=== PATIENT | female | born 1970 | race Caucasian/White ===

== ENCOUNTER 2021-07-30 18:35 | Inpatient (IN) | payer BC, SELFPAY ==
--- NOTE | 2021-07-30 21:00 | RAD REPORT ---
EXAM DESCRIPTION: RAD - Chest Single View - 07/30/2021 8:32 pm CLINICAL HISTORY: Cough Chest pain. COMPARISON: No comparisons FINDINGS: Portable technique limits examination quality. The lungs are grossly clear. The heart is normal in size. No displaced fractures.Right port catheter has tip in the SVC. IMPRESSION: No acute intrathoracic process suspected.
[2021-07-30 21:54] LABS: Urine Blood Trace-intact (Negative); Urine Glucose Negative (Negative); Urine Protein 1+ (Negative); Urine Specific Gravity 1.015 (1.005-1.030); Urine pH 5.5 (5.0-7.0)
[2021-07-30 22:11] LABS: Absolute Lymphocytes (CBC) 1.9 K/uL (0.7-4.9); Hematocrit 26.4 % (36.0-45.0); Lymphocytes % 20.3 % (15.3-44.8); MCV 97.1 fL (80-100); RBC Red Blood Cell Count 2.72 M/uL (3.86-4.86)
[2021-07-30] MEDS ORDERED: NA CHLORIDE 0.9% 500 ML ONE (22:19)
[2021-07-30] MEDS ORDERED: ACETAMINOPHEN 500 MG TAB ONE (22:19)
[2021-07-30] MEDS ORDERED: NA CHLORIDE 0.9% 2,000 ML ONE (22:20)
[2021-07-30] MEDS ORDERED: NA CHLORIDE 0.9% 100 ML ONE (22:20)
[2021-07-30] MEDS ORDERED: CEFEPIME 1 GM/VIAL ONE (22:20)
[2021-07-30 22:33] LABS: Urine Bacteria <20 /HPF (<20); Urine RBC <5 /HPF (NONE SEEN)
[2021-07-30 22:35] LABS: Protime INR 1.43
[2021-07-30 22:38] LABS: Bilirubin Total 0.3 mg/dL (0.2-1.0)
[2021-07-30 22:39] LABS: Urine Specific Gravity/Preg 1.015 (1.005-1.030)
[2021-07-30 22:39] LABS: Albumin 2.8 g/dL (3.4-5.0); Protein, Total 7.3 g/dL (6.4-8.2)
[2021-07-30 22:41] LABS: Potassium 2.9 mmol/L (3.5-5.1)
--- NOTE | 2021-07-30 22:51 | EDPHYS ---
Physician Documentation [facility] Name: Valentina Vickers Age: 51 yrs Sex: Female : 1970 Arrival Date: 07/30/2021 Time: 18:38 Bed 26 Private MD: ED Physician Sammy Martinez HPI: 07/30 20:10 This 51 yrs old Female presents to ER via Ambulatory with complaints of Patient cp finished last round of chemo 2 weeks ago, patient states she has a temperature of 102.5, nausea/vomiting, body aches.. 20:10 The patient reports fever, that was measured at 102.5 degrees Fahrenheit. Onset: The cp symptoms/episode began/occurred today. 20:10 Associated signs and symptoms: Pertinent positives: abdominal pain, chills, diarrhea, cp nausea, vomiting, Pertinent negatives: altered mental status. Severity of symptoms: in the emergency department the symptoms are unchanged despite home interventions. Patient reports receiving last dose of chemo 2 weeks ago for history of breast cancer. 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 - Social history:: Smoking status: Patient denies any tobacco usage or history of. ROS: 20:15 Constitutional: Positive for body aches, chills, Negative for fever. cp 20:15 Abdomen/GI: Positive for abdominal pain, nausea, vomiting, and diarrhea. cp 20:15 Cardiovascular: Negative for chest pain, edema, palpitations. cp 20:15 Eyes: Negative for injury, pain, redness, and discharge. cp 20:15 ENT: Negative for drainage from ear(s), ear pain, sore throat, difficulty swallowing, difficulty handling secretions. 20:15 Respiratory: Negative for cough, shortness of breath, wheezing. 20:15 : Negative for urinary symptoms. 20:15 Skin: Negative for cellulitis, rash. 20:15 Neuro: Negative for altered mental status, dizziness, headache, weakness. 20:15 All other systems are negative. Exam: 20:20 Constitutional: The patient appears in no acute distress, alert, awake, cp non-diaphoretic, non-toxic, well developed, well nourished. 20:20 Head/Face: Normocephalic, atraumatic. cp 20:20 Eyes: Periorbital structures: appear normal, Conjunctiva: normal, no exudate, no injection, Sclera: no appreciated abnormality, Lids and lashes: appear normal, bilaterally. 20:20 ENT: External ear(s): are unremarkable, Nose: is normal, Mouth: Lips: moist, Oral mucosa: pink and intact, moist, Posterior pharynx: Airway: no evidence of obstruction, patent, Tonsils: are normal in appearance, swelling, is not appreciated, erythema, is not appreciated, exudate, is not appreciated. 20:20 Neck: ROM/movement: is normal, is supple, without pain, no range of motions limitations, no meningismus. 20:20 Chest/axilla: Inspection: normal. 20:20 Cardiovascular: Rate: tachycardic, Rhythm: regular, Edema: is not appreciated, JVD: is not appreciated. 20:20 Respiratory: the patient does not display signs of respiratory distress, Respirations: normal, no use of accessory muscles, no retractions, labored breathing, is not present, Breath sounds: are clear throughout, no decreased breath sounds, no stridor, no wheezing. 20:20 Abdomen/GI: Inspection: abdomen appears normal, Bowel sounds: active, all quadrants, Palpation: soft, in all quadrants, mild abdominal tenderness, in the right upper quadrant, rebound tenderness, is not appreciated, involuntary guarding, is not appreciated. 20:20 Back: pain, is absent, ROM is normal. 20:20 Skin: cellulitis, is not appreciated, no rash present. 20:20 Neuro: Orientation: to person, place \\T\\ time. Mentation: is normal. 22:07 ECG was reviewed by the Attending Physician. cp Vital Signs: 19:57 BP 120 / 64; Pulse 127; Resp 18 S; Temp 98.7(TE); Pulse Ox 96% on R/A; Weight 88 kg bb (R); Height 5 ft. 4 in. (162.56 cm) (R); Pain 6/10; 19:57 Body Mass Index 33.30 (88.00 kg, 162.56 cm) bb MDM: 20:08 Patient medically screened. cp 21:00 Differential diagnosis: viral Infection, bacterial infection, URI, bronchitis, cp pneumonia UTI, gastroenteritis, meningitis. 23:00 Data reviewed: vital signs, nurses notes, lab test result(s), EKG, radiologic studies, cp plain films. 23:00 Post IV fluid administration reassessment for Sepsis: Client prescribed 30 mL/kg IVF. cp Heart: Regular rate/rhythm noted. Lungs: Noted to be clear bilaterally. Neuro: no change Cardio: Cardiovascular examination improved from previous exam. Heart rate and blood pressure have improved. Respiratory: no change. Counseling: I had a detailed discussion with the patient and/or guardian regarding: the historical points, exam findings, and any diagnostic results supporting the discharge/admit diagnosis, lab results, radiology results, the need for further work-up and treatment in the hospital. ED course: repeat lactate not ordered due to initial lactate wnl. 07/30 20:04 Order name: Blood Culture Adult (2) / 20:04 Order name: CBC with Diff; Complete Time: 23:39 07/30 22:29 Interpretation: Normal except: RBC 2.72; HGB 9.1; HCT 26.4; RDW 16.7; MN% 23.6; MNA 2.2. / 20:04 Order name: CMP; Complete Time: 22:47 / 22:45 Interpretation: NA 134; K 2.9; GLUC 115; BUN 4; AST 13; ALB 2.8; GLOB 4.5; A/G 0.6. / 20:04 Order name: Lactate; Complete Time: 22:45 / 22:48 Interpretation: LAC 1.6; Reviewed. / 20:04 Order name: Protime (+inr); Complete Time: 22:45 / 23:28 Interpretation: PT 15.9; Reviewed. / 20:04 Order name: Ptt, Activated; Complete Time: 22:45 / 20:04 Order name: Urine Culture / 20:04 Order name: Urine Microscopic Only; Complete Time: 22:45 / 22:50 Interpretation: UWBC TNTC; Reviewed. / 20:04 Order name: Influenza Screen (a \\T\\ B); Complete Time: 22:45 /13 20:04 Order name: Strep; Complete Time: 22:45 07/30 20:04 Order name: COVID-19 SARS RT PCR (Document "Date of Onset" if Symptomatic); Complete cp Time: 23:13 07/30 21:54 Order name: Urine Dipstick-Ancillary; Complete Time: 21:55 EDMS 07/30 22:03 Interpretation: Normal except: UKET 1+; UBLD Trace-intact; UPROT 1+; UESTR 1+. 07/30 22:00 Order name: Glucose, Ancillary Testing; Complete Time: 22:02 EDMS 07/30 22:00 Order name: Glucose, Ancillary Testing; Complete Time: 22:02 EDMS 07/30 20:04 Order name: Chest Single View XRAY; Complete Time: 21:29 07/30 21:30 Interpretation: Report reviewed. 07/30 20:04 Order name: Accucheck; Complete Time: 22:10 07/30 22:09 Order name: CT Abd/Pelvis - IV Contrast Only 07/30 22:22 Order name: Manual Differential; Complete Time: 23:28 EDGA 07/30 23:28 Interpretation: Normal except: BANDS [F] 10; MONO 21. 07/30 22:28 Order name: Urine --Ancillary (enter results); Complete Time: 22:45 07/30 22:49 Order name: Throat Culture EDGA 07/31 00:16 Order name: US Abdomen Limited: RUQ 07/31 06:00 Order name: CBC with Automated Diff EDGA 07/31 06:12 Order name: Basic Metabolic Panel EDGA 07/31 06:12 Order name: Phosphorus EDGA 07/31 06:12 Order name: Magnesium EDGA 07/30 20:04 Order name: Cardiac monitoring; Complete Time: 22:10 07/30 20:04 Order name: EKG - Nurse/Tech; Complete Time: 22:10 07/30 20:04 Order name: IV Saline Lock - Large Bore; Complete Time: 21:15 07/30 20:04 Order name: Labs collected and sent; Complete Time: 21:15 07/30 20:04 Order name: O2 Per Protocol; Complete Time: 22:10 07/30 20:04 Order name: O2 Sat Monitoring; Complete Time: 22:10 06/13 20:04 Order name: Urine Dipstick-Ancillary (obtain specimen); Complete Time: 22:10 cp 07/30 20:04 Order name: Urine Test (obtain specimen); Complete Time: 22:10 cp EC:07 Rate is 117 beats/min. Rhythm is regular. GA interval is normal. QRS interval is cp normal. QT interval is normal. T waves are Inverted in lead aVR. Interpreted by me. Reviewed by me. Administered Medications: : Drug: Acetaminophen 1000 mg Route: PO; ke1 22:28 Drug: NS 0.9% (30 ml/kg) 30 ml/kg Route: IV; Rate: bolus; Site: Port-a-cath; ke1 :28 Drug: Cefepime 1 grams Route: IVPB; Rate: 200 ml/hr; Infused Over: 30 mins; Site: [facility] Port-a-cath; 07/31 01:10 Not Given (allergic to vanc MD notified): vancoMYCIN 1 grams IVPB once over 2 hrs ke1 01:20 Drug: Potassium Chloride 20 mEq Route: IV; Rate: calculated rate; Site: Port-a-cath; [facility] Disposition Summary: 07/30/21 22:51 Hospitalization Ordered Hospitalization Status: Inpatient Admission cp Provider: Tomy Samuel cp Condition: Stable cp Problem: new cp Symptoms: have improved cp Bed/Room Type: Standard cp Location: Telemetry/MedSurg (Inpatient)(07/31/21 09:38) bd Room Assignment: 204(07/31/21 09:38) bd Diagnosis - UTI/ Urinary tract infection, site not specified cp - Bandemia cp - Hypokalemia cp Forms: - Medication Reconciliation Form cp - SBAR form cp Addendum: 08/03/2021 08:29 Co-signature as Attending Physician, Sammy Martinez MD I agree with the assessment and c chau plan of care. Signatures: Dispatcher [employer] EDMS Iman Leon Corey, MD MD cha Ballard, Brenda RN Sammy Sandoval PA PA cp Jasmina Clayton, Haven Raplh RN, RN RN ke1 Nancy Saul PA PA sb3 Corrections: (The following items were deleted from the chart) 07/30 22:50 22:48 Reviewed. cp cp 23:39 22:51 Telemetry/MedSurg (Inpatient) cp cg 23:39 22:51 cp cg 07/31 09:38 07/30 23:39 BR ER HOLD cg bd 07/31 09:38 07/30 23:39 ERHOLD- cg bd
--- NOTE | 2021-07-30 22:51 | ER ---
Nurse's Notes [facility] Name: Valentina Vickers Age: 51 yrs Sex: Female : 1970 Arrival Date: 07/30/2021 Time: 18:38 Bed 26 Private MD: Diagnosis: UTI/ Urinary tract infection, site not specified;Bandemia;Hypokalemia Presentation: 07/30 19:57 Chief complaint: Patient states: she started running fever today and she finished chemo bb a few weeks ago temp at home was 102.4, she also has burning with urination and thinks she may have a UTI. Coronavirus screen: fever. Ebola Screen: No symptoms or risks identified at this time. Initial Sepsis Screen: Does the patient meet any 2 criteria? Temp <36.0*C (96.8*F)) or > 38.3*C (100.9*F). HR > 90 bpm. Yes Does the patient have a suspected source of infection? Yes: Dysuria/Frequency/Urgency/UTI. Risk Assessment: Do you want to hurt yourself or someone else? Patient reports no desire to harm self or others. Onset of symptoms was July 30, 2021. 19:57 Method Of Arrival: Ambulatory bb 19:57 Acuity: AUTUMN 2 bb Triage Assessment: 22:00 General: Appears in no apparent distress. Behavior is appropriate for age. Pain: Denies ke1 pain. 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 - Social history:: Smoking status: Patient denies any tobacco usage or history of. Screenin:00 Abuse screen: Denies threats or abuse. Nutritional screening: No deficits noted. ke1 Tuberculosis screening: No symptoms or risk factors identified. Fall Risk No fall in past 12 months (0 pts). No secondary diagnosis (0 pts). IV access (20 points). Ambulatory Aid- None/Bed Rest/Nurse Assist (0 pts). Gait- Normal/Bed Rest/Wheelchair (0 pts) Mental Status- Oriented to own ability (0 pts). Total Morrow Fall Scale indicates No Risk (0-24 pts). Vital Signs: 19:57 BP 120 / 64; Pulse 127; Resp 18 S; Temp 98.7(TE); Pulse Ox 96% on R/A; Weight 88 kg bb (R); Height 5 ft. 4 in. (162.56 cm) (R); Pain 6/10; 19:57 Body Mass Index 33.30 (88.00 kg, 162.56 cm) bb ED Course: 18:38 Patient arrived in ED. jj6 19:59 Triage completed. bb 19:59 Arm band placed on Patient placed in an exam room, on a stretcher. Family accompanied bb patient. 20:02 Sammy Aguilera PA is PHCP. cp 20:02 Sammy Martinez MD is Attending Physician. cp 20:22 Haven Colindres, MARIE is Primary Nurse. ke1 20:34 Chest Single View XRAY In Process Unspecified. EDMS 21:14 Accessed Port-a-Cath. Clean \T\ dry. Dressing intact. Good blood return. Flushes easily. ke1 22:00 Placed in gown. Bed in low position. ke1 22:45 Notified Nurse Practitioner and/or Physician Sex Offender Treatment Professional of a critical lab result(s), bb potassium of 2.9 Sammy LOZANO notified. 22:50 Tomy Samuel is Hospitalizing Provider. cp 23:30 CT Abd/Pelvis - IV Contrast Only In Process Unspecified. EDMS Administered Medications: 22:28 Drug: Acetaminophen 1000 mg Route: PO; ke1 22:28 Drug: NS 0.9% (30 ml/kg) 30 ml/kg Route: IV; Rate: bolus; Site: Port-a-cath; ke1 22:28 Drug: Cefepime 1 grams Route: IVPB; Rate: 200 ml/hr; Infused Over: 30 mins; Site: [facility] Port-a-cath; 07/31 01:10 Not Given (allergic to reji HAGER notified): vancoMYCIN 1 grams IVPB once over 2 hrs ke1 01:20 Drug: Potassium Chloride 20 mEq Route: IV; Rate: calculated rate; Site: Port-a-cath; [facility] Outcome: 07/30 22:51 Decision to Hospitalize by Provider. cp 07/31 10:51 Patient left the ED. ss Signatures: Dispatcher [employer] EDMS Li, Suzan, RN RN bb Guera Calixto, RN RN ss Sammy Aguilera PA PA cp Jeffries, Jennifer jj6 Haven Colindres RN RN ke1
[2021-07-30 23:27] LABS: Blood Morphology Comment NOT SEEN (NOT SEEN); Platelet Estimate ADEQ
--- NOTE | 2021-07-31 | P.HP ---
Certification for Inpatient Patient admitted to: Inpatient With expected LOS: <2 Midnights Patient will require the following post-hospital care: None Practitioner: I am a practitioner with admitting privileges, knowledge of patient current condition, hospital course, and medical plan of care. Services: Services provided to patient in accordance with Admission requirements found in Title 42 Section 412.3 of the Code of Federal Regulations Patient History Date of Service: 07/31/21 Reason for admission: UTI, Bandemia History of Present Illness: Patient is a 51-year-old female who presented to the ED with complaints of fever, nausea, vomiting, body aches, and UTI symptoms. She was diagnosed with breast cancer about 7 months ago and completed her last round of chemotherapy 2 weeks ago. She states that she was hospitalized about 1 week ago in [place] (where she lives) for similar symptoms and was found to be neutropenic. Work-up today revealed potassium 2.9, urine positive for UTI, 10 bands. WBC, neutrophils, and lactic acid within normal limits. She was not febrile but was tachycardic. CT abdomen pelvis showed showed cholelithiasis. She was mildly tender in the right upper quadrant. Ultrasound pending. She was started on cefepime and given sepsis fluids in the ED. Will admit patient for further evaluation and treatment. Home medications list reviewed: Yes - Past Medical/Surgical History Diabetic: No -: Breast Cancer -: Tubal Ligation Psychosocial/ Personal History: Patient is visiting from [place]. She is . - Family History Mother -: Diabetes, Cancer - Social History Smoking Status: Never smoker Alcohol use: No CD- Drugs: No Caffeine use: Yes Place of Residence: Home Review of Systems General: Fever, Weakness, Malaise ENT: Nose Congestion Gastrointestinal: Nausea Musculoskeletal: Other (Bilateral Knee Pain) Physical Examination - Physical Exam General: Alert, In no apparent distress HEENT: Atraumatic, PERRLA, EOMI, Sclerae nonicteric Neck: Supple, 2+ carotid pulse no bruit, No LAD, Without JVD or thyroid abnormality Respiratory: Clear to auscultation bilaterally, Normal air movement Cardiovascular: Regular rate/rhythm, Normal S1 S2 Gastrointestinal: Normal bowel sounds, No rebound, No guarding, Tenderness (mild RUQ) Musculoskeletal: No tenderness Integumentary: No rashes Neurological: Normal speech, Sensation intact, Normal affect - Studies Laboratory Data (last 24 hrs) 07/30/21 21:35: PT 15.9 H, INR 1.43, APTT 31.1 07/30/21 21:35: Sodium 134 L, Potassium 2.9 L*, BUN 4 L, Creatinine 0.71, Glucose 115 H, Total Bilirubin 0.3, AST 13 L, ALT 13, Alkaline Phosphatase 75 07/30/21 21:35: WBC 9.4, Hgb 9.1 L, Hct 26.4 L, Plt Count 234 Microbiology Data (last 24 hrs): 07/30/21 21:40 Throat Group A Streptococcus Rapid Screen - Final 07/30/21 21:40 Nasopharnyx Influenza Type A Antigen Screen - Final 07/30/21 21:40 Nasopharnyx Influenza Type B Antigen Screen - Final Assessment and Plan - Problems (Diagnosis) (1) UTI (urinary tract infection) Current Visit: Yes Status: Acute Qualifiers: Urinary tract infection type: acute cystitis Hematuria presence: with hematuria Qualified Code(s): N30.01 - Acute cystitis with hematuria (2) Bandemia Current Visit: Yes Status: Acute (3) Hypokalemia Current Visit: Yes Status: Acute (4) Breast cancer Current Visit: Yes Status: Acute Qualifiers: Breast location: unspecified site of breast Estrogen receptor status: unspecified Patient sex: female Laterality: unspecified laterality Qualified Code(s): C50.919 - Malignant neoplasm of unspecified site of unspecified female breast (5) History of recent chemotherapy Current Visit: Yes Status: Acute - Plan -Patient flagging sepsis with UTI, tachycardia, and bandemia. Continue cefepime and IVF (has vanc allergy). Follow urine culture -CT showed cholelithiasis but negative for acute processes. Ultrasound pending. -Hypokalemic. IVF with potassium. Monitor and replete as necessary. -Tylenol PRN fever. -Reconcile and continue home medications. -Lovenox for VTE ppx -Full code Discharge Plan: Home Plan to discharge in: 48 Hours - Advance Directives Does patient have a Living Will: No Does patient have a Durable POA for Healthcare: No - Code Status/Comfort Care Code Status Assessed: Yes (Full) Critical Care: No Time Spent Managing Pts Care (In Minutes): 50
[2021-07-31] MEDS ORDERED: POTASSIUM 25 MEQ EFFERV TAB ONE (01:06)
[2021-07-31] MEDS ORDERED: KCL 20 MEQ/100 mL IVPB 100 ML IV ONE (01:39)
[2021-07-31 04:48] VITALS: BMI 33.3
[2021-07-31 05:55] LABS: Absolute Lymphocytes (CBC) 1.2 K/uL (0.7-4.9); Hematocrit 23.8 % (36.0-45.0); Lymphocytes % 17.7 % (15.3-44.8); MCV 99.6 fL (80-100); RBC Red Blood Cell Count 2.39 M/uL (3.86-4.86)
[2021-07-31 06:12] LABS: Magnesium 1.8 mg/dL (1.8-2.4); Potassium 3.3 mmol/L (3.5-5.1)
[2021-07-31] MEDS: NS KCL 20MEQ 20 MEQ/1,000 ML BAG IV SCH ×2 (06:15→21:19)
[2021-07-31] MEDS ORDERED: NS KCL 20MEQ 1,000 ML IV ONE (06:27)
[2021-07-31] MEDS ORDERED: ENOXAPARIN 40 MG/0.4 ML SQ ONE (08:26)
[2021-07-31] MEDS ORDERED: MAGNESIUM SULFATE 1 gm IVPB 1 GM/100 ML BAG IV ONE ×2 (08:26→09:00)
[2021-07-31] MEDS ORDERED: ACETAMINOPHEN 500 MG TAB ONE (08:26)
[2021-07-31] MEDS ORDERED: ONDANSETRON 4 MG/2 ML VIAL ONE (08:26)
[2021-07-31] MEDS ORDERED: CEFEPIME 1 GM/VIAL ONE (08:27)
[2021-07-31] MEDS ORDERED: NA CHLORIDE 0.9% 0 ML ONE (08:28)
[2021-07-31] MEDS: ENOXAPARIN 40 MG/0.4 ML SQ SCH (08:32)
[2021-07-31] MEDS: CEFEPIME 1 GM in NA CHLORIDE 0.9% 100 ML IV SCH ×2 (08:32→21:18)
[2021-07-31] MEDS: ONDANSETRON 4 MG/2 ML VIAL IV PRN ×2 (08:33→16:50)
[2021-07-31] MEDS: ACETAMINOPHEN 500 MG TAB PO PRN (08:33)
[2021-07-31] MEDS ORDERED: NA CHLORIDE 0.9% 100 ML ONE (08:37)
[2021-07-31] MEDS ORDERED: POTASSIUM 25 MEQ EFFERV TAB PO ONE (10:30)
--- NOTE | 2021-07-31 11:06 | EKG ---
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
--- NOTE | 2021-07-31 14:14 | P.PN ---
Subjective Date of Service: 07/31/21 Chief Complaint: UTI, Bandemia Patient reported nausea and poor appetite. She states she has not been able to eat or drink today. She denies abdominal pain or diarrhea. Physical Examination - Vital Signs Temperature: 96.8 F Blood Pressure: 116/56 Pulse: 100 Respirations: 18 Pulse Ox (%): 95 - Studies Laboratory Data (last 24 hrs) 07/30/21 21:35: PT 15.9 H, INR 1.43, APTT 31.1 07/30/21 21:35: Sodium 134 L, Potassium 2.9 L*, BUN 4 L, Creatinine 0.71, Glucose 115 H, Total Bilirubin 0.3, AST 13 L, ALT 13, Alkaline Phosphatase 75 07/30/21 21:35: WBC 9.4, Hgb 9.1 L, Hct 26.4 L, Plt Count 234 Microbiology Data (last 24 hrs): 07/30/21 21:40 Throat Group A Streptococcus Rapid Screen - Final 07/30/21 21:40 Nasopharnyx Influenza Type A Antigen Screen - Final 07/30/21 21:40 Nasopharnyx Influenza Type B Antigen Screen - Final Assessment And Plan - Current Problems (Diagnosis) (1) Bandemia Current Visit: Yes Status: Acute (2) Breast cancer Current Visit: Yes Status: Acute Qualifiers: Breast location: unspecified site of breast Estrogen receptor status: unspecified Patient sex: female Laterality: unspecified laterality Qualified Code(s): C50.919 - Malignant neoplasm of unspecified site of unspecified female breast (3) Hypokalemia Current Visit: Yes Status: Acute (4) UTI (urinary tract infection) Current Visit: Yes Status: Acute Qualifiers: Urinary tract infection type: acute cystitis Hematuria presence: with hematuria Qualified Code(s): N30.01 - Acute cystitis with hematuria - Plan Physical exam General: Alert, In no apparent distress HEENT: Atraumatic, PERRLA, EOMI, Sclerae nonicteric Neck: Supple, 2+ carotid pulse no bruit, No LAD, Without JVD or thyroid abnormality Respiratory: Clear to auscultation bilaterally, Normal air movement Cardiovascular: Regular rate/rhythm, Normal S1 S2 Gastrointestinal: Normal bowel sounds, No rebound, No guarding, Tenderness (mild RUQ) Musculoskeletal: No tenderness Integumentary: No rashes Neurological: Normal speech, Sensation intact, Normal affect. Diagnosis Acute cystitis without hematuria Plan: Continue IV cefepime. IV hydration. Encouraged oral intake. Follow urine culture. Supportive measures. Monitor renal function and CBC.
--- NOTE | 2021-07-31 14:38 | RAD REPORT ---
EXAM DESCRIPTION: Abdomen Exam Limited US Abdomen Limited US Right Upper Abdomen CLINICAL HISTORY: Abdominal pain, gallstones on recent CT abdomen/pelvis COMPARISON: CT Abdomen/Pelvis With Contrast 07/30/2021 TECHNIQUE: Grayscale, color Doppler, and duplex Doppler images of right upper abdomen. FINDINGS: No significant free fluid. Liver parenchyma grossly unremarkable. Common bile duct measuring 3 mm diameter and within normal limits. No intra or extrahepatic biliary ductal dilatation. Gallbladder shows multiple small stones. No gallbladder wall thickening or pericholecystic fluid. Negative sonographic Ríos's sign. Pancreas not well visualized due to overlying bowel gas. IMPRESSION: Multiple small gallstones. No sonographic evidence of acute calculous cholecystitis or biliary obstruction. Electronically signed by: Elvis Paiz MD 07/31/2021 1:47 AM CDT Due to temporary technical issues with the PACS/Fluency reporting system, reports are being signed by the in house radiologists without review as a courtesy to insure prompt reporting. The interpreting radiologist is fully responsible for the content of the report.
--- NOTE | 2021-07-31 15:25 | RAD REPORT ---
EXAM DESCRIPTION: CT Abdomen and Pelvis With Intravenous Contrast CLINICAL HISTORY: The patient is 51 years old and is Female; Abd pain TECHNIQUE: Axial computed tomography images of the abdomen and pelvis with intravenous contrast. S agittal and coronal reformatted images were created and reviewed. This CT exam was performed using one or more of the following dose reduction techniques: automated exposure control, adjustment of t he mA and/or kV according to patient size, and/or use of iterative reconstruction technique. COMPARISON: No relevant prior studies available. FINDINGS: Lung bases: Unremarkable. No mass. No consolidation. ABDOMEN: Liver: Diffuse hepatic steatosis. Gallbladder and bile ducts: Cholelithiasis. No ductal dilation. Pancreas: Unremarkable. No mass. No ductal dilation. Spleen: Unremarkable. No splenomegaly. Adrenals: Unremarkable. No mass. Kidneys and ureters: Unremarkable. No solid mass. No hydronephrosis. Stomach and bowel: Unremarkable. No obstruction. No mucosal thickening. PELVIS: Appendix: No findings to suggest acute appendicitis. Bladder: Unremarkable. No mass. Reproductive: Unremarkable as visualized. ABDOMEN and PELVIS: Intraperitoneal space: Unremarkable. No free air. No significant fluid collection. Bones/joints: No acute fracture. No dislocation. Soft tissues: Unremarkable. Vasculature: Unremarkable. No abdominal aortic aneurysm. Lymph nodes: Unremarkable. No enlarged lymph nodes. IMPRESSION: 1. Cholelithiasis. 2. Diffuse hepatic steatosis. Electronically signed by: Venkatesh Hernandez MD 07/30/2021 11:48 PM CDT Due to temporary technical issues with the PACS/Fluency reporting system, reports are being signed by the in house radiologists without review as a courtesy to insure prompt reporting. The interpreting radiologist is fully responsible for the content of the report.
[2021-08-01] MEDS: NS KCL 20MEQ 20 MEQ/1,000 ML BAG IV SCH ×5 (00:30→20:30)
[2021-08-01 06:03] LABS: Absolute Lymphocytes (CBC) 1.1 K/uL (0.7-4.9); Hematocrit 21.8 % (36.0-45.0); Lymphocytes % 18.1 % (15.3-44.8); MCV 98.6 fL (80-100); RBC Red Blood Cell Count 2.21 M/uL (3.86-4.86)
[2021-08-01 06:19] LABS: Bicarbonate 26 mmol/L (21-32); Glomerular Filtration Rate 109 ml/min (=/>90); Glucose Level 84 mg/dL (74-106); Potassium 3.6 mmol/L (3.5-5.1); Sodium Level 139 mmol/L (136-145)
[2021-08-01 06:26] LABS: BUN Blood Urea Nitrogen < 3 mg/dL (7-18)
[2021-08-01] MEDS: ACETAMINOPHEN 500 MG TAB PO PRN ×3 (07:12→17:49)
[2021-08-01] MEDS: CEFEPIME 1 GM in NA CHLORIDE 0.9% 100 ML IV SCH (09:09)
[2021-08-01] MEDS: ENOXAPARIN 40 MG/0.4 ML SQ SCH (09:10)
[2021-08-01 11:10] VITALS: O2SAT 97
[2021-08-01] MEDS: ONDANSETRON 4 MG/2 ML VIAL IV PRN (11:24)
--- NOTE | 2021-08-01 12:52 | P.PN ---
Subjective Date of Service: 08/01/21 Chief Complaint: UTI, Bandemia Patient reported nausea and poor appetite. She ate less than 25% of her breakfast. She had a single episode of fever earlier this morning. Physical Examination - Vital Signs Temperature: 97.2 F Blood Pressure: 98/53 Pulse: 91 Respirations: 18 Pulse Ox (%): 97 - Studies Microbiology Data (last 24 hrs): 07/30/21 21:40 Throat Culture & Sensitivity - Final NORMAL UPPER RESPIRATORY TERRA GROWN. 07/30/21 21:40 Clean Catch Urine [place] Count - Final <10,000 CFU/ML. 07/30/21 21:40 Clean Catch Urine - Final No growth. Assessment And Plan - Current Problems (Diagnosis) (1) Bandemia Current Visit: Yes Status: Acute (2) Breast cancer Current Visit: Yes Status: Acute Qualifiers: Breast location: unspecified site of breast Estrogen receptor status: unspecified Patient sex: female Laterality: unspecified laterality Qualified Code(s): C50.919 - Malignant neoplasm of unspecified site of unspecified female breast (3) Hypokalemia Current Visit: Yes Status: Acute (4) UTI (urinary tract infection) Current Visit: Yes Status: Acute Qualifiers: Urinary tract infection type: acute cystitis Hematuria presence: with hematuria Qualified Code(s): N30.01 - Acute cystitis with hematuria (5) Anorexia Current Visit: Yes Status: Acute - Plan Physical exam General: Alert, In no apparent distress HEENT:Sclerae nonicteric Neck: Supple, No LAD, Without JVD. Respiratory: Clear to auscultation bilaterally, Normal air movement Cardiovascular: Regular rate/rhythm, Normal S1 S2 Gastrointestinal: Normal bowel sounds, No rebound, No guarding, no tenderness. Musculoskeletal: No tenderness Integumentary: No rashes Neurological: Normal speech, Sensation intact, Normal affect. Diagnosis Acute cystitis without hematuria Plan: Patient had a single episode of fever. No leukocytosis. She does report nasal congestion. Urine culture: No growth, blood culture: No growth. I suspect upper respiratory infection. Continue IV cefepime. IV fluid maintenance Encouraged oral intake. Supportive measures.
[2021-08-01] MEDS: CEFEPIME 2 GM in NA CHLORIDE 0.9% 100 ML IV SCH ×2 (13:15→20:31)
[2021-08-01] MEDS ORDERED: TRAMADOL HCL 50 MG TAB PO PRN (20:50)
[2021-08-02] MEDS: NS KCL 20MEQ 20 MEQ/1,000 ML BAG IV SCH (02:20)
[2021-08-02] MEDS: CEFEPIME 2 GM in NA CHLORIDE 0.9% 100 ML IV SCH (04:39)
[2021-08-02 05:44] LABS: Absolute Lymphocytes (CBC) 0.3 K/uL (0.7-4.9); Hematocrit 22.2 % (36.0-45.0); Lymphocytes % 9.4 % (15.3-44.8); MCV 99.4 fL (80-100); MPV 8.8 fL (7.6-11.3); RBC Red Blood Cell Count 2.24 M/uL (3.86-4.86)
[2021-08-02 05:46] LABS: Bicarbonate 28 mmol/L (21-32); Glomerular Filtration Rate 117 ml/min (=/>90); Glucose Level 127 mg/dL (74-106); Potassium 3.7 mmol/L (3.5-5.1); Sodium Level 142 mmol/L (136-145)
[2021-08-02 05:51] LABS: BUN Blood Urea Nitrogen < 3 mg/dL (7-18)
[2021-08-02 08:49] VITALS: BP 108/59; TEMP 97.6
[2021-08-02] MEDS ORDERED: POTASSIUM CL SA 10 MEQ TAB PO ONE (09:00)
[2021-08-02] MEDS: ENOXAPARIN 40 MG/0.4 ML SQ SCH (09:14)
[2021-08-02] MEDS: ONDANSETRON 4 MG/2 ML VIAL IV PRN (09:20)
--- NOTE | 2021-08-02 09:28 | P.DS ---
Admission Date: 07/30/21 Discharge Date: 08/02/21 Disposition: ROUTINE DISCHARGE Discharge Condition: FAIR Reason for Admission: UTI, Bandemia - Problems (1) Bandemia Status: Acute (2) Breast cancer Status: Acute Qualifiers: Breast location: unspecified site of breast Estrogen receptor status: unspecified Patient sex: female Laterality: unspecified laterality Qualified Code(s): C50.919 - Malignant neoplasm of unspecified site of unspecified female breast (3) Hypokalemia Status: Acute (4) UTI (urinary tract infection) Status: Acute Qualifiers: Urinary tract infection type: acute cystitis Hematuria presence: with hematuria Qualified Code(s): N30.01 - Acute cystitis with hematuria (5) Anorexia Status: Acute Brief History of Present Illness: Patient is a 51-year-old female who presented to the ED with complaints of fever, nausea, vomiting, body aches, and UTI symptoms. She was diagnosed with breast cancer about 7 months ago and completed her last round of chemotherapy 2 weeks ago. She states that she was hospitalized about 1 week ago in [place] (where she lives) for similar symptoms and was found to be neutropenic. Work-up revealed potassium 2.9, urine positive for UTI, 10 bands. WBC, neutrophils, and lactic acid within normal limits. She was not febrile but was tachycardic. CT abdomen pelvis showed showed cholelithiasis. She was started on cefepime and given sepsis fluids in the ED. Patient admitted for further management. Hospital Course: Patient admitted to the medical floor and treated supportively with IV fluid. Also treated with IV cefepime for suspected UTI Patient had a single episode of fever. No leukocytosis. Urine culture: No growth, blood culture: No growth. Upper respiratory infection suspect. She received 3 days of IV antibiotics. She tolerated clear liquid diet but not solids. She has ongoing nausea which per patient has been present since her chemo. She was not neutropenic. She was anemic with hemoglobin of 7.5 but stable throughout her hospital stay. Patient clinically improved and deemed stable for discharge. She is prescribed cefuroxime to complete at least 7 days of antibiotic treatment. I also advised small frequent high-calorie diet. Vital Signs/Physical Exam: Temp Pulse Resp BP Pulse Ox 97.6 F 102 H 18 108/59 L 96 08/02/21 08:00 08/02/21 08:00 08/02/21 08:00 08/02/21 08:00 08/02/21 08:00 General: Alert, In no apparent distress, Oriented x3 HEENT: Mucous membr. moist/pink Neck: Supple, JVD not distended Respiratory: Clear to auscultation bilaterally, Normal air movement Cardiovascular: No edema, Regular rate/rhythm, Normal S1 S2, No murmurs Capillary refill: <2 Seconds Gastrointestinal: Normal bowel sounds, Soft and benign, Non-distended, No tenderness Musculoskeletal: No swelling, No tenderness Integumentary: No rashes, No erythema Neurological: Normal strength at 5/5 x4 extr Laboratory Data at Discharge: WBC 3.1 K/uL (4.3-10.9) L D 08/02/21 05:16 Hgb 7.5 g/dL (12.0-15.0) L 08/02/21 05:16 Hct 22.2 % (36.0-45.0) L 08/02/21 05:16 Plt Count 209 K/uL (152-406) 08/02/21 05:16 PT 15.9 SECONDS (9.5-12.5) H 07/30/21 21:35 INR 1.43 07/30/21 21:35 APTT 31.1 SECONDS (24.3-36.9) 07/30/21 21:35 Sodium 142 mmol/L (136-145) 08/02/21 05:16 Potassium 3.7 mmol/L (3.5-5.1) 08/02/21 05:16 BUN < 3 mg/dL (7-18) L 08/02/21 05:16 Creatinine 0.42 mg/dL (0.55-1.3) L 08/02/21 05:16 Glucose 127 mg/dL (74-106) H 08/02/21 05:16 Phosphorus 3.0 mg/dL (2.5-4.9) 07/31/21 05:22 Magnesium 1.8 mg/dL (1.8-2.4) 07/31/21 05:22 Total Bilirubin 0.3 mg/dL (0.2-1.0) 07/30/21 21:35 AST 13 U/L (15-37) L 07/30/21 21:35 ALT 13 U/L (12-78) 07/30/21 21:35 Alkaline Phosphatase 75 U/L (45-117) 07/30/21 21:35 Home Medications: Citalopram Hydrobromide [Celexa] 40 mg PO DAILY 6PM 07/31/21 Pantoprazole Sodium 20 mg PO DAILY 07/31/21 Pravastatin Sodium 40 mg PO DAILY 6PM 07/31/21 Cefuroxime Axetil [Cefuroxime] 500 mg PO BID #10 tab 08/02/21 Ondansetron [Zofran] 4 mg PO Q6H PRN #30 tab 08/02/21 New Medications: Cefuroxime Axetil [Cefuroxime] 500 mg PO BID #10 tab Ondansetron [Zofran] 4 mg PO Q6H PRN #30 tab PRN Reason: Nausea / Vomiting Diet: Regular Activity: Ad seth Time spent managing pt's care (in minutes): 37
[2021-08-02] MEDS ORDERED: HEPARIN 500 UNIT/5 ML SYR IV PRN (10:18)
== END 2021-08-02 11:00 | disposition home or self-care (01) | DRG 872 ==
LOC: ER 18:35 → ERHOLD 23:55 → 2ND 07-31 10:44
PROVIDERS: ADMIT Internal Medicine; ATTEND Internal Medicine
DX: A41.9 Sepsis, unspecified organism (principal); N30.01 Acute cystitis with hematuria; E87.6 Hypokalemia; C50.919 Malignant neoplasm of unspecified site of unspecified female breast; K80.20 Calculus of gallbladder without cholecystitis without obstruction; J06.9 Acute upper respiratory infection, unspecified; D64.9 Anemia, unspecified
CPT/HCPCS: 36415; 71045; 74177; 76705; 80048; 80053; 81003; 81015; 81025; 82947; 83605; 83735; 84100; 84132; 85025; 85610; 85730; 87040; 87070; 87081; 87086; 87088; 87804; 93005; 96374; 96375; 99284; J0692; J1642; J1650; J2405; J3475; J3480; J7030; J7040; J7050; Q9967; U0003